=== PATIENT | male | born 1945 | race Caucasian/White ===

== ENCOUNTER 2016-12-15 17:49 | Emergency (ER) | payer OTHER ==
[~2016-12-15] VITALS: Ht 188 cm; Wt 92.5 kg
--- NOTE | 2016-12-15 20:08 | ED DYSPNEA/ASTHMA COMPLAINT ---
History of Present Illness General Chief Complaint: Dyspnea (COPD, CHF, Other) Stated Complaint: DIFFICULTY BREATHING Source: patient, family Exam Limitations: no limitations Allergies Coded Allergies: NO KNOWN ALLERGIES (12/15/16) Triage Note: TRIAGE: PT TO ER WITH FAMILY C/C DIFFICULTY BREATHING, BACK/RIB PAIN WITH COUGHING AND MOVEMENT. ONSET SATURDAY. COUGH HAS BEEN PRODUCTIVE WITH CLEAR, BROWN AND GREEN PHLEGM AT TIMES. FAMILY STATES COUGH HAS BEEN WORSENING SINCE ONSET. HAD EKG DONE IN [place] PRIOR TO TRIAGE. 88 NSR. Triage Nurses Notes Reviewed? yes HPI: This patient is a 71-year-old male with a past medical history including CAD status post 2 stents who presented to the emergency department stay with his family members for evaluation of difficulty breathing. He reported that his symptoms began last Saturday with a cough productive of green and clear sputum. He reported that whenever he coughs he gets pain in his rib cage. He also reported he has had intermittent chills. The patient has recently been exposed to pneumonia and bronchitis in his family. He denied any swelling in his lower extremities. He reported that it feels like he is having a difficult time breathing and that his chest is, "heavy." He denied any fevers, nausea, vomiting, abdominal pain, constipation, diarrhea, or any other associated symptoms. (SHANNAN SMILEY,ISELA) Vital Signs & Intake/Output Vital Signs & Intake/Output Vital Signs Date Time Temp Pulse Resp B/P Pulse O2 O2 Flow FiO2 Ox Delivery Rate 12/16 2151 97.6 82 20 132/75 97 Room Air 12/15 2100 Room Air 12/16 2047 96.9 90 18 134/79 95 Room Air 12/15 2022 95 12/15 1805 97.6 90 20 137/85 96 Room Air ED Intake and Output 12/16 0000 12/15 1200 Intake Total Output Total Balance Patient 204 lb Weight Reconcile Medications Albuterol Sulfate (Proair Hfa) 90 MCG HFA.AER.AD 2 PUF INH Q4-6 PRN PRN BRONCHITIS Aspirin (Ecotrin*) 81 MG TABLET.DR 1 TAB PO DAILY HEART/BLOOD (Reported) Azithromycin 250 MG TABLET 1 DP PO AD BRONCHITIS 2 the first day followed by 1 for days 2-5 Lactobacillus Combo No.10 (Probiotic) (Unknown Strength) CAPSULE (Unknown Dose ) PO DAILY SUPPLEMENT (Reported) Levothyroxine Sodium 125 MCG TABLET 1 TAB PO DAILY THYROID (Reported) Losartan Potassium 50 MG TABLET 1 TAB PO DAILY BP (Reported) Methylprednisolone. (Medrol) 4 MG TAB.DS.PK 1 DP PO AD BRONCHITIS 6 on day 1 then reduce by one tablet daily until gone Triamcinolone Acetonide 0.1 % CREAM..G. 1 DULCE TOP PRN EXTREMITIES AND TORSO ( Reported) (DWIGHT LEE,CELSA) Past History Travel History Traveled to [place] past 21 day No Medical History Any Pertinent Medical History? see below for history Neurological: NONE EENT: NONE Cardiovascular: CAD, hypertension Respiratory: NONE Gastrointestinal: diverticulitis Hepatic: NONE Renal: NONE Musculoskeletal: NONE Psychiatric: NONE Endocrine: hypothyroidism Blood Disorders: NONE Cancer(s): NONE PRINCIPAL TECHNICAL WRITER/Reproductive: NONE Pneumonia Vaccine: 10/20/09 Surgical History Surgical History: non-contributory Psychosocial History Who do you live with Spouse What is your primary language Hungarian Tobacco Use: Quit >30 days ago ETOH Use: occasional use Illicit Drug Use: denies illicit drug use Family History Hx Contributory? No (ISELA CAMPBELL PA-C) Review of Systems Review of Systems Constitutional: Reports: see HPI. EENTM: Reports: see HPI. Respiratory: Reports: see HPI. Cardiovascular: Reports: see HPI. GI: Reports: no symptoms. Genitourinary: Reports: no symptoms. Musculoskeletal: Reports: see HPI. Skin: Reports: no symptoms. Neurological/Psychological: Reports: no symptoms. All Other Systems: Reviewed and Negative (ISELA CAMPBELL PA-C) Physical Exam Physical Exam Respiratory: chest non-tender, no respiratory distress. Scattered rhonchi and quiet breath sounds. Slightly diminished in the left base. No wheezes or rales Comments: Well-developed well-nourished person in no acute distress HEENT: Normal EENT exam, head normocephalic, moist mucous membranes Pupils equally round and reactive to light. Neck: Supple, no lymphadenopathy Back: Normal gait Cardiovascular: Regular rate and rhythm with no murmurs, rubs, or gallops. No carotid bruits Abdomen: Soft, nontender, and nondistended Extremity: No edema, no calf tenderness to palpation, normal and equal pulses. Neuro: Alert oriented x3, cranial nerves II through XII grossly intact. Skin: No appreciable rash on exposed skin, skin is warm and dry. Psych: Mood and affect is normal Core Measures ACS in differential dx? Yes Severe Sepsis Present: No Septic Shock Present: No (ISELA CAMPBELL PA-C) Progress Differential Diagnosis: asthma, AMI, bronchitis, costochondritis, CHF, COPD, musculoskeletal pain, pericarditis, pulmonary embolism, pneumonia, pneumothorax, unstable angina Initial ED EKG: normal axis, normal intervals, normal sinus rhythm, no ST T wave changes, 88 bpm Comments: 12/15/2016 9:43:03 PM: I spoke to [facility] regarding this patient's chest x-ray. They reported that the read was done several hours ago, but they were unable to send it over to our system. The impression on the chest x-ray is : No acute pulmonary process. Discussed this patient with Dr. QUINTANILLA who agreed this patient could be discharged with antibiotics, a Medrol Dosepak, and an inhaler. The patient has a nebulizer at home. (ISELA CAMPBELL PA-C) Plan of Care: Orders Procedure Date/time Status TROPONIN LEVEL 12/16 1939 Complete MAGNESIUM 12/16 1939 Complete LACTIC ACID 12/16 1939 Complete D-DIMER 12/16 1939 Complete COMPREHENSIVE METABOLIC PANEL 12/16 1939 Complete CBC WITHOUT DIFFERENTIAL 12/16 1939 Complete B-TYPE NATRIURETIC PEP (BNP) 12/16 1939 Complete XRY-CHEST XRAY, PA AND LATERAL 12/15 1808 Active EKG 12/15 175 Active Laboratory Tests 12/15/16 2240: Lactic Acid Cancelled 12/15/162024: Anion Gap 13, Estimated GFR 59 L, BUN/Creatinine Ratio 16.7, Glucose 121 H, Lactic Acid 1.1, Calcium 10.3 H, Magnesium 2.1, Total Bilirubin 1.1, AST 33, ALT 41, Alkaline Phosphatase 53, Troponin I < 0.01, Fqn-M-Kiqloeoshem Pept 39.8, Total Protein 7.5, Albumin 4.3, Globulin 3.2, Albumin/Globulin Ratio 1.3, D- Dimer 232, CBC w Diff NO MAN DIFF REQ, RBC 5.74, MCV 82.5, MCH 27.6, RDW 12.9, MPV 7.0 L, Gran % 74.0, Lymphocytes % 15.0 L, Monocytes % 9.3, Eosinophils % 1.4, Basophils % 0.3, Absolute Granulocytes 6.9 H, Absolute Lymphocytes 1.4, Absolute Monocytes 0.9 H, Absolute Eosinophils 0.1, Absolute Basophils 0, PUBS MCHC 33.5 Departure Departure Disposition: HOME OR SELF CARE Condition: Stable Clinical Impression Primary Impression: Bronchitis Referrals: ALEX QIU MD (PCP/Family) Additional Instructions: Take antibiotic as prescribed and for the full duration. Take a Medrol Dosepak as prescribed. Please use inhaler as prescribed. Follow-up with your primary care physician. Return for any worsening symptoms or concerns. Departure Forms: Customer Survey General Discharge Information Prescriptions: Current Visit Scripts Albuterol Sulfate (Proair Hfa) 2 PUF INH Q4-6 PRN PRN BRONCHITIS #1 INHAL Methylprednisolone. (Medrol) 1 DP PO AD #1 DP 6 on day 1 then reduce by one tablet daily until gone Azithromycin 1 DP PO AD #6 TAB 2 the first day followed by 1 for days 2-5 (ISELA CAMPBELL PA-C) PA/DIGITAL PRODUCT MANAGER Co-Sign Statement Statement: ED Attending supervision documentation- x I saw and evaluated the patient. I have also reviewed all the pertinent lab results and diagnostic results. I agree with the findings and the plan of care as documented in the PA's/DIGITAL PRODUCT MANAGER's documentation. [] I have reviewed the ED Record and agree with the PA's/DIGITAL PRODUCT MANAGER's documentation. [] Additions or exceptions (if any) to the PAs/DIGITAL PRODUCT MANAGER's note and plan are summarized below: [] (DWIGHT LEE,CELSA) Critical Care Note Critical Care Note Critical Care Time: non-applicable (ISELA CAMPBELL PA-C)
[2016-12-15] MEDS ORDERED: LOSARTAN POTASS50 M1 PO (20:27)
[2016-12-15] MEDS ORDERED: LEVOTHYROXINE125 MCG PO (20:27)
[2016-12-15] MEDS ORDERED: ASPIRIN EC81 M1 PO (20:28)
[2016-12-15] MEDS ORDERED: PROBIOTIC1 EAC2 PO (20:28)
[2016-12-15] MEDS ORDERED: TRIAMCINOLONE A15 G1 TOP (20:29)
[2016-12-15 20:35] LABS: ABSOLUTE BASOPHIL COUNT 0 /CUMM (0.0-0.2); ABSOLUTE EOSINOPHIL COUNT 0.1 /CUMM (0.0-0.7); ABSOLUTE GRANULOCYTE CT 6.9 /CUMM (1.4-6.5); ABSOLUTE LYMPH COUNT 1.4 /CUMM (1.2-3.4); ABSOLUTE MONOCYTE COUNT 0.9 /CUMM (0.10-0.60); BASOPHIL % 0.3 % (0.0-2.0); EOSINOPHIL % 1.4 % (0-5); HEMATOCRIT 47.4 % (42-52); MEAN CORPUSCULAR HGB 27.6 PG (27.0-31.0); MEAN CORPUSCULAR HGB CONC 33.5 G/DL (33.0-37.0); MEAN CORPUSCULAR VOLUME 82.5 FL (80.0-94.0); PLATELET COUNT 257 /CUMM (130-400); RBC DISTRIBUTION WIDTH 12.9 % (11.5-14.5); RED BLOOD CELL CT 5.74 /CUMM (4.70-6.10); WHITE BLOOD CELL COUNT 9.3 /CUMM (4.8-10.8)
[2016-12-15] MEDS ORDERED: PROAIR HFA8.5 GM INH (21:45)
[2016-12-15] MEDS ORDERED: AZITHROMYCIN250 M1 PO (21:45)
[2016-12-15] MEDS ORDERED: MEDROL4 M2 PO (21:45)
[2016-12-15 21:52] VITALS: BP 132/75
--- NOTE | 2016-12-17 09:44 | RADIOLOGY REPORT ---
EXAMINATION: XR CHEST CLINICAL INFORMATION: Upper respiratory tract infection. COMPARISON: None. TECHNIQUE: PA and lateral views of the chest were obtained. FINDINGS: The lungs are well-expanded and clear without focal airspace consolidation. No pleural effusions or pneumothoraces are identified. Cardiomediastinal contours are within normal limits. Soft tissues are unremarkable. No acute osseous abnormality is identified. IMPRESSION: No acute pulmonary process.
== END 2016-12-15 21:53 ==
LOC: ERH
PROVIDERS: Physician Assistant
DX: J40 Bronchitis, not specified as acute or chronic (principal); R07.89 Other chest pain
CPT/HCPCS: 1263; 93005; 93010

== ENCOUNTER → 2017-09-18 | Day surgery (SDC) | payer OTHER ==
[~2017-09-18] VITALS: Ht 188 cm; Wt 92.1 kg
[~2017-09-18] MED LIST: ASPIRIN EC81 M1 PO; AZITHROMYCIN250 M1 PO; LEVOTHYROXINE125 MCG PO; LOSARTAN POTASS50 M1 PO; MEDROL4 M2 PO; PROAIR HFA8.5 GM INH; PROBIOTIC1 EAC2 PO; TRIAMCINOLONE A15 G1 TOP
--- NOTE | 2017-09-18 12:26 | Operative Report ---
Operative/Inv Procedure Report Surgery Date: 09/18/17 Name of Procedure: Cataract extraction lens implantation left eye Pre-Operative Diagnosis: Age-related cataract left eye 20/30 vision 20/80 glare vision Post-Operative Diagnosis: Same Estimated Blood Loss: none Surgeon/Plant Protection Supervisor: Drew LEE,Glen Calero Anesthesia: local monitored anesthesi Complications: None Operative/Procedure Note Note: The patient was brought to the operating room standard monitoring equipment was attached the patient was prepped and draped in the usual fashion for intraocular surgery. A lid speculum was placed to retract the lids. The case was begun by making 1 partial-thickness corneal relaxing incision at 2. A temporal incision with a 2.4 mm keratome. The eye was stabilized with a Finch ring during this incision. 1 mL of non-preserved lidocaine was introduced into the anterior chamber to provide anesthesia. The anterior chamber was then filled and deepened with viscoelastic. A curvilinear capsulorrhexis was achieved using a 30-gauge needle and is a cystotome and capsulorrhexis was finished using a Utrata forceps. A second or paracentesis incision was made temporally with a 1 mm MVR blade. The lens was then hydrodissected with balanced salt solution and found to be rotatable. The lens was emulsified using phacoemulsification and a modified four-quadrant cracking technique. The residual cortical material was removed using automated irrigation and aspiration and as much of the anterior capsular rim was cleaned as well as possible. The posterior capsule was cleaned first with the automated machine on a low setting and then manually with a Valentino squeegee. The capsular bag was deepened with viscoelastic. The lens a SA60 WF 18.0 Diopter placed into the bag under direct visualization and rotated so that the haptics were at 12 and 6:00. Viscoelastic was then removed from the eye by flushing it out and then by automated irrigation and aspiration. The eye was pressurized to a normal tone. 1/10 of a cc of vancomycin solution was introduced into the anterior chamber to provide antibiotic prophylaxis. The wounds were sealed by hydrating the stroma adjacent to them and the eye was left at a proper tone after the wounds were checked and found not to be leaking. The lid speculum was removed from the orbit. Antibiotic and steroid drops were placed on the eye and then the eye was shielded. Monitoring equipment was removed from the patient and the patient was removed from the operative suite to the holding area. The patient tolerated the procedure well and will be seen in the office tomorrow.
== END ==
LOC: STS 01:58
DX: H25.9 Unspecified age-related cataract (principal); I10 Essential (primary) hypertension; E07.9 Disorder of thyroid, unspecified
CPT/HCPCS: J2250; V2632

== ENCOUNTER → 2017-10-01 | Day surgery (SDC) | payer OTHER ==
[~2017-10-01] VITALS: Ht 188 cm; Wt 92.1 kg
--- NOTE | 2017-10-01 10:01 | Operative Report ---
Operative/Inv Procedure Report Surgery Date: 10/01/17 Name of Procedure: Cataract extraction lens implantation right eye Pre-Operative Diagnosis: Age-related cataract right eye 20/25 vision 20/60 glare vision Post-Operative Diagnosis: Same Estimated Blood Loss: none Surgeon/Cook Helper Vegetable: Drew LEE,Glen Calero Anesthesia: local monitored anesthesi Complications: None Operative/Procedure Note Note: The patient was brought to the operating room standard monitoring equipment was attached the patient was prepped and draped in the usual fashion for intraocular surgery. A lid speculum was placed to retract the lids. The case was begun by making 1 partial-thickness corneal relaxing incision at 20. A temporal incision with a 2.4 mm keratome. The eye was stabilized with a Finch ring during this incision. 1 mL of non-preserved lidocaine was introduced into the anterior chamber to provide anesthesia. The anterior chamber was then filled and deepened with viscoelastic. A curvilinear capsulorrhexis was achieved using a 30-gauge needle and is a cystotome and capsulorrhexis was finished using a Utrata forceps. A second or paracentesis incision was made temporally with a 1 mm MVR blade. The lens was then hydrodissected with balanced salt solution and found to be rotatable. The lens was emulsified using phacoemulsification and a modified four-quadrant cracking technique. The residual cortical material was removed using automated irrigation and aspiration and as much of the anterior capsular rim was cleaned as well as possible. The posterior capsule was cleaned first with the automated machine on a low setting and then manually with a Valentino squeegee. The capsular bag was deepened with viscoelastic. The lens a SA60 WF 18.0 Diopter placed into the bag under direct visualization and rotated so that the haptics were at 12 and 6:00. Viscoelastic was then removed from the eye by flushing it out and then by automated irrigation and aspiration. The eye was pressurized to a normal tone. 1/10 of a cc of vancomycin solution was introduced into the anterior chamber to provide antibiotic prophylaxis. The wounds were sealed by hydrating the stroma adjacent to them and the eye was left at a proper tone after the wounds were checked and found not to be leaking. The lid speculum was removed from the orbit. Antibiotic and steroid drops were placed on the eye and then the eye was shielded. Monitoring equipment was removed from the patient and the patient was removed from the operative suite to the holding area. The patient tolerated the procedure well and will be seen in the office tomorrow.
== END ==
LOC: STS 03:36
DX: H25.9 Unspecified age-related cataract (principal); I10 Essential (primary) hypertension; E03.9 Hypothyroidism, unspecified; I25.10 Atherosclerotic heart disease of native coronary artery without angina pectoris
CPT/HCPCS: J2250; V2632